=== PATIENT | female | born 1955 | race Caucasian/White ===

== ENCOUNTER 2018-01-06 09:24 | Observation (INO) | payer BC, OTHER ==
[~2018-01-06] VITALS: Ht 170.2 cm; Wt 70.8 kg
[~2018-01-06 09:24] MED LIST: TRAMADOL HCL100 MG PO; TRAZODONE HCL300 MG PO; ZOLOFT100 MG PO
[2018-01-06] MEDS ORDERED: SODIUM CHLORIDE 0.9% 1000ML 1,000 ML IV STA ×2 (09:35→13:13)
--- NOTE | 2018-01-06 10:00 | Diagnostic Imaging Report ---
Exam: Head CT without contrast History: Syncope, visual changes, headache, arm weakness Comparison studies: None Technique: Axial images were obtained from the skull base to the vertex. Coronal and sagittal images reconstructed from the axial data. Intravenous contrast: None Findings: Scalp: No abnormalities. Bones: No fractures, blastic or lytic lesions. Brain sulci: Appropriate for age. Ventricles: Normal in size and configuration. No hydrocephalus. Extra-axial spaces: No masses, no fluid collection. Parenchyma: No mass, acute hemorrhage or acute cortical vascular insult. A few subtle hypodensities in the supratentorial white matter are nonspecific but most compatible with chronic small vessel ischemic changes. Sellar/suprasellar region: No abnormalities. Craniocervical junction: Patent foramen magnum. No Chiari one malformation. Incidental findings: Atherosclerotic calcifications in the carotid siphons. IMPRESSION: 1. No acute intracranial abnormalities. 2. Mild supratentorial chronic microvascular ischemic changes. Signed by: Dr. Cheo Stanley M.D. on 01/06/2018 9:57 AM
--- NOTE | 2018-01-06 10:07 | Diagnostic Imaging Report ---
PROCEDURE: CHEST SINGLE (PORTABLE) COMPARISON: None. INDICATIONS: SYNCOPE, SHORTNESS OF BREATH FINDINGS: Lungs are well-inflated. No consolidation, pleural effusion, or pneumothorax. Cardiomediastinal contour and pulmonary vasculature are within normal limits. No acute osseous abnormality. Mid epigastric surgical clips. CONCLUSION: No acute cardiopulmonary abnormality. Dictated by: Cheo Yanes M.D. on 01/06/2018 at 10:08 Electronically approved by: Cheo Yanes M.D. on 01/06/2018 at 10:08
[2018-01-06 10:22] LABS: BASOPHILS # (AUTO) 0.1 (0.0-0.1); BASOPHILS % 0.9 % (0.0-1.0); EOSINOPHILS # (AUTO) 0.2 (0.0-0.4); EOSINOPHILS % 2.8 % (0.0-6.0); HEMATOCRIT 41.1 % (34.2-44.1); HEMOGLOBIN 14.3 g/dL (12.0-16.0); LYMPHOCYTES # (AUTO) 2.2 (1.0-3.2); LYMPHOCYTES % 25.7 % (18.0-39.1); MEAN CORPUSCULAR HEMOGLOBIN 31.5 pg (28-32); MEAN CORPUSCULAR HGB CONC 34.8 g/dL (31-35); MEAN CORPUSCULAR VOLUME 90.5 fL (81-99); MONOCYTES # (AUTO) 0.8 (0.2-0.8); MONOCYTES % 8.9 % (4.4-11.3); NEUTROPHILS # (AUTO) 5.2 (2.1-6.9); NEUTROPHILS % 61.3 % (38.7-80.0); PLATELET COUNT 452 x10e3/uL (140-360); RED BLOOD COUNT 4.54 x10e6/uL (3.6-5.1); RED CELL DISTRIBUTION WIDTH 12.9 % (11.7-14.4)
[2018-01-06 10:34] LABS: INR 1.03; PROTHROMBIN TIME 12.7 seconds (11.9-14.5)
[2018-01-06 10:35] LABS: PARTIAL THROMBOPLASTIN TIME 29.2 seconds (23.8-35.5)
[2018-01-06 10:44] LABS: ALANINE AMINOTRANSFERASE 13 IU/L (0-55); ALBUMIN 4.3 g/dL (3.5-5.0); ALBUMIN/GLOBULIN RATIO 1.1 (0.8-2.0); ALKALINE PHOSPHATASE 40 IU/L (40-150); ANION GAP 13.4 mmol/L (8-16); BLOOD UREA NITROGEN 17 mg/dL (7-26); BUN/CREATININE RATIO 18 (6-25); CALCIUM 10.1 mg/dL (8.4-10.2); CARBON DIOXIDE 28 mmol/L (22-29); CHLORIDE 99 mmol/L (98-107); CREATINE KINASE 49 IU/L (29-168); CREATININE, SERUM 0.93 mg/dL (0.57-1.11); EST GLOMERULAR FILTRATION RATE > 60 ML/MIN (60-); GLUCOSE 112 mg/dL (74-118); POTASSIUM 4.4 mmol/L (3.5-5.1); SODIUM 136 mmol/L (136-145)
[2018-01-06 14:30] LABS: BILIRUBIN,URINE NEGATIVE (NEGATIVE); CLARITY,URINE CLEAR (CLEAR); COLOR,URINE YELLOW (YELLOW); KETONES,URINE NEGATIVE (NEGATIVE); LEUKOCYTE ESTERASE ,URINE TRACE (NEGATIVE); NITRITE,URINE NEGATIVE (NEGATIVE); PROTEIN,URINE DIPSTICK NEGATIVE (NEGATIVE); URINE UROBILINOGEN 0.2 mg/dL (0.2 - 1)
[2018-01-06 14:32] LABS: EPITHELIAL CELLS,URINE RARE /LPF; WBC,URINE (MAN) 0-5 /HPF (0-5)
[2018-01-06 15:49] LABS: BENZODIAZEPINES SCREEN,URINE NEGATIVE (NEGATIVE)
[2018-01-06 15:50] LABS: AMPHETAMINES SCREEN,URINE POSITIVE (NEGATIVE); PHENCYCLIDINE SCREEN,URINE NEGATIVE (NEGATIVE)
[2018-01-06] MEDS ORDERED: ONDANSETRON HCL INJ 2 MG/ML VIAL IV PRN (16:00)
[2018-01-06] MEDS ORDERED: SODIUM CHLORIDE FLUSH 10 ML SYR INJ PRN (16:00)
--- OUTSIDE RECORDS SUMMARY | 2018-01-06 16:56 | XMS REPORT ---
Author Author [facility] Address Unknown Phone Unavailable Care Team Providers Care Food Beverage Manager Name Role Phone JOANN BROOKE Unavailable Unavailable Problems This patient has no known problems. Allergies, Adverse Reactions, Alerts This patient has no known allergies or adverse reactions. Medications This patient has no known medications. Results Test Description Test Time Test Comments Text Results Atomic Results Result Comments CT BRAIN WO [place] [address] Patient Name: PRAKASH OLSEN MR #: [id number] : 1955 Age/Sex: 62/F Req # : [id number] Adm Physician: Ordered by: JOANN BROOKE MD Report #: [id number] Location: ER Room/Bed: Procedure: [id number] CT/CT BRAIN WO Exam Date: 01/06/18 Exam Time: 0935 REPORT STATUS: Signed Exam: Head CT without contrast History: Syncope, visual changes, headache, arm weakness Comparison studies: None Technique: Axial images were obtained from the skull base to the vertex. Coronal and sagittal images reconstructed from the axial data. Intravenous contrast: None Findings: Scalp: No abnormalities. Bones: No fractures, blastic or lytic lesions. Brain sulci: Appropriate for age. Ventricles: Normal in size and configuration. No hydrocephalus. Extra-axial spaces: No masses, no fluid collection. Parenchyma: No mass, acute hemorrhage or acute cortical vascular insult. A few subtle hypodensities in the supratentorial white matter are nonspecific but most compatible with chronic small vessel ischemic changes. Sellar/suprasellar region: No abnormalities. Craniocervical junction: Patent foramen magnum. No Chiari one malformation. Incidental findings: Atherosclerotic calcifications in the carotid siphons. IMPRESSION: 1. No acute intracranial abnormalities. 2. Mild supratentorial chronic microvascular ischemic changes. Signed by: Dr. Zara Stanley M.D. on 01/06/2018 9:57 AM Dictated By: ZARA STANLEY MD 6 Transcribed By: CODY on 01/06/18956 COPY TO: JOANN BROOKE MD CHEST SINGLE (PORTABLE) [place] [address] Patient Name: PRAKASH OLSEN MR #: [id number] : 1955 Age/Sex: 62/F Req #: [id number] Adm Physician: Ordered by: JOANN BROOKE MD Report #: [id number] Location: ER Room/Bed: Procedure: [id number] DX/CHEST SINGLE (PORTABLE) Exam Date: 01/06/18 Exam Time: 0950 REPORT STATUS: Signed PROCEDURE: CHEST SINGLE (PORTABLE) COMPARISON: None. INDICATIONS: SYNCOPE, SHORTNESS OF BREATH FINDINGS: Lungs are well-inflated. No consolidation, pleural effusion, or pneumothorax. Cardiomediastinal contour and pulmonary vasculature are within normal limits. No acute osseous abnormality. Mid epigastric surgical clips. CONCLUSION: No acute cardiopulmonary abnormality. Dictated by: Zara Pascal M.D. on 01/06/2018 at 10:08 Electronically approved by: Zara Pascal M.D. on 01/06/2018 at 10:08 Dictated By: ZARA PASCAL MD 1008 Transcribed By: RUPINDER on 01/06/18 1008 COPY TO: JOANN BROOKE MD
[2018-01-06 19:58] VITALS: BP 114/54
[2018-01-06 19:59] VITALS: BP 114/54
[2018-01-06 20:06] LABS: CREATINE KINASE 53 IU/L (29-168)
[2018-01-06 20:53] VITALS: BP 114/54
[2018-01-06] MEDS: TRAZODONE HCL 50 MG TAB PO SCH (22:21)
[2018-01-06] MEDS: SERTRALINE HCL 100 MG TAB PO SCH (22:51)
[2018-01-06 23:21] VITALS: BP 95/51
[2018-01-07 01:21] LABS: CREATINE KINASE 50 IU/L (29-168)
[2018-01-07 05:22] VITALS: BP 94/50
[2018-01-07 06:41] LABS: BASOPHILS # (AUTO) 0.1 (0.0-0.1); BASOPHILS % 1.2 % (0.0-1.0); EOSINOPHILS # (AUTO) 0.3 (0.0-0.4); EOSINOPHILS % 4.6 % (0.0-6.0); HEMATOCRIT 33.7 % (34.2-44.1); HEMOGLOBIN 11.8 g/dL (12.0-16.0); LYMPHOCYTES # (AUTO) 2.4 (1.0-3.2); LYMPHOCYTES % 37.8 % (18.0-39.1); MEAN CORPUSCULAR VOLUME 91.3 fL (81-99); MONOCYTES # (AUTO) 0.8 (0.2-0.8); MONOCYTES % 12.8 % (4.4-11.3); NEUTROPHILS # (AUTO) 2.8 (2.1-6.9); NEUTROPHILS % 43.3 % (38.7-80.0); PLATELET COUNT 381 x10e3/uL (140-360); RED BLOOD COUNT 3.69 x10e6/uL (3.6-5.1); RED CELL DISTRIBUTION WIDTH 12.9 % (11.7-14.4)
[2018-01-07 07:07] LABS: CREATINE KINASE 49 IU/L (29-168)
[2018-01-07 07:36] LABS: ANION GAP 10.3 mmol/L (8-16); BLOOD UREA NITROGEN 13 mg/dL (7-26); BUN/CREATININE RATIO 18 (6-25); CALCIUM 8.9 mg/dL (8.4-10.2); CARBON DIOXIDE 25 mmol/L (22-29); CHLORIDE 108 mmol/L (98-107); CHOL/HDL RATIO 3.5 (3.0-3.6); CHOLESTEROL 211 MD/DL (0-199); CREATININE, SERUM 0.72 mg/dL (0.57-1.11); EST GLOMERULAR FILTRATION RATE > 60 ML/MIN (60-); GLUCOSE 96 mg/dL (74-118); HDL CHOLESTEROL 60 MG/DL (40-60); LDL CHOLESTEROL 125 MG/DL (60-130); POTASSIUM 4.3 mmol/L (3.5-5.1); SODIUM 139 mmol/L (136-145); TRIGLYCERIDES 128 MG/DL (0-149)
[2018-01-07 07:40] VITALS: BP 102/53
[2018-01-07] MEDS ORDERED: SODIUM CHLORIDE 0.9% 500ML 500 ML IV ONE (08:00)
--- NOTE | 2018-01-07 08:17 | History and Physical ---
PRIMARY CARE PHYSICIAN: None. CHIEF COMPLAINT: Loss of consciousness. HISTORY OF PRESENT ILLNESS: This is a 62-year-old woman with a history of insomnia and ADHD, now passing out 2 times at home. The patient states she hit her head on the bed. The patient was out for a few minutes. There was no tongue biting or loss of urine or stool. The last time this occurred was in April 2017. At that time, she did not seek medical attention. She denies any chest pain or shortness of breath. She denies any symptoms at this time, feels normal again. Did not have any presyncopal symptoms. PAST MEDICAL HISTORY: Insomnia, depression, ADHD, cigarette use 1/2 pack per day. PAST SURGICAL HISTORY: Tonsillectomy, gastric bypass, splenectomy, hysterectomy, left rotator cuff repair, C-spine laminectomy for stenosis. ALLERGIES: PER ELECTRONIC MEDICAL RECORD. FAMILY HISTORY AND SOCIAL HISTORY: The patient is . She has 1 child. No alcohol or illicits. She smokes 1/2 pack of cigarettes per day. MEDICATIONS: Per electronic medical record. REVIEW OF SYSTEMS: Denies any dizziness or chest pain. PHYSICAL EXAMINATION VITAL SIGNS: Reviewed. GENERAL: A tired-appearing woman, resting in bed. HEENT: Anicteric. Pupils are responsive to light. No oral lesions. CARDIOVASCULAR: Normal S1 and S2. LUNGS: Moderate breath sounds. ABDOMEN: Soft, nontender, nondistended. EXTREMITIES: No edema or calf tenderness. NEUROLOGIC: Alert and oriented times 3, moving all extremities. SKIN: Dry. PSYCHIATRIC: Normal affect. LABS: Reviewed. MEDICATIONS: Reviewed. ASSESSMENT AND PLAN: A 62-year-old woman. 1. Syncope. Could be related to hypotension. Blood pressure is low here. Will obtain carotid ultrasound and MRI of the brain. CT of the brain was negative. Will also obtain a 2-D echocardiogram. Obtain orthostatic vital signs. 2. Hypotension. May need fluids. Will get orthostatic vitals now. 3. Attention deficit/hyperactivity disorder. Restart home medication. 4. Depression. Restart home medication. 5. Insomnia. Restart home medication. 6. Normocytic anemia, mild. Will follow. 7. Prophylaxis: Will use Lovenox and Pepcid. 8. Disposition: Give some fluids. Obtain orthostatics and follow up all the studies. Job#: [id number] MH
[2018-01-07] MEDS: ASPIRIN 81 MG CHEW TAB PO SCH (09:53)
[2018-01-07] MEDS: FAMOTIDINE 20 MG TAB PO SCH ×2 (09:53→16:35)
--- NOTE | 2018-01-07 10:10 | Diagnostic Imaging Report ---
Exam: Brain MRI without IV contrast History: Syncope Comparison studies: Head CT 01/06/2018 Technique: Sagittal T2; axial DWI, FLAIR, MPGR, T1, Coronal T2 FLAIR. Intravenous contrast: None Findings: Scalp: Normal in signal. No masses. Bone marrow: Normal in signal intensity. Brain sulci: Appropriate for age. Ventricles: Normal in size. No hydrocephalus. Extra axial spaces: No mass, no fluid collection. Parenchyma: No mass, acute hemorrhage or acute ischemia. A few T2 FLAIR hyperintense foci in the supratentorial white matter are nonspecific but most compatible with chronic small vessel ischemic changes. Suprasellar region: No abnormalities. Craniocervical junction: Patent foramen magnum. No Chiari malformation. Vessels: Normal flow-voids in the arteries and sinuses. IMPRESSION: 1. No acute intracranial abnormalities. 2. Mild supratentorial chronic microvascular ischemic changes. Signed by: Dr. Cheo Stanley M.D. on 01/07/2018 10:06 AM
[2018-01-07 11:10] VITALS: BP 115/56
[2018-01-07 15:34] VITALS: BP 118/56
[2018-01-07] MEDS: ENOXAPARIN SOD INJ 40 MG/0.4 ML SYR SC SCH (16:35)
[2018-01-07] MEDS: SODIUM CHLORIDE 0.9% 1000ML 1,000 ML IV SCH (16:35)
[2018-01-07 20:00] VITALS: BP 115/56
[2018-01-07] MEDS: TRAZODONE HCL 50 MG TAB PO SCH (20:36)
[2018-01-07] MEDS: SERTRALINE HCL 100 MG TAB PO SCH (20:36)
[2018-01-08] VITALS: BP 95/58
[2018-01-08] MEDS: SODIUM CHLORIDE 0.9% 1000ML 1,000 ML IV SCH ×4 (02:54→16:50)
[2018-01-08 04:00] VITALS: BP 101/52
[2018-01-08] MEDS ORDERED: ASPIRIN CHEW81 MG PO (06:44)
[2018-01-08] MEDS ORDERED: MIDODRINE 2.5 MG TAB PO SCH (07:00)
[2018-01-08 07:54] VITALS: BP 107/55
--- NOTE | 2018-01-08 07:58 | Progress Note ---
DATE: January 08, 2018 TIME: 7 a.m. OVERNIGHT: Orthostatics positive. Ultrasound of carotids still pending. REVIEW OF SYSTEMS: Denies any dizziness. VITAL SIGNS: Reviewed. PHYSICAL EXAMINATION GENERAL: A tired-appearing woman, resting in bed. HEENT: Anicteric. Pupils are responsive to light. No oral lesions. CARDIOVASCULAR: Normal S1 and S2. LUNGS: Moderate breath sounds. ABDOMEN: Soft, nontender, nondistended. EXTREMITIES: No edema. SKIN: Dry. PSYCHIATRIC: Flat affect. LABS: Reviewed. MEDICATIONS: Reviewed. ASSESSMENT AND PLAN: A 62-year-old woman. 1. Syncope. 2. Orthostatic hypotension. 3. Attention deficit/hyperactivity disorder. 4. Depression. 5. Insomnia. 6. Normocytic anemia. PLAN 1. Start midodrine 5 t.i.d. 2. Give normal saline 1 L bolus now, at noon and at 4 p.m. and recheck orthostatics this evening. 3. Start TEE hose in the setting of orthostatic hypotension. 4. Counseled on sitting on the bedside before standing when she is getting up from a seated or lying position. 5. Continue medications for insomnia, depression and ADHD. 6. Prophylaxis: Continue regimen and TEE hose. 7. Disposition: Monitor closely. Recheck orthostatics this evening. Possible discharge at the end of the day. Job#: [id number]
[2018-01-08] MEDS: FAMOTIDINE 20 MG TAB PO SCH ×2 (08:02→16:32)
[2018-01-08] MEDS: ASPIRIN 81 MG CHEW TAB PO SCH (08:29)
[2018-01-08 12:03] VITALS: BP_SYST 105; BP_SYST 182; BP_DIAS 53; BP_DIAS 82
[2018-01-08] MEDS: MIDODRINE HCL 5 MG TABLET PO SCH ×2 (12:20→16:32)
[2018-01-08] MEDS: ENOXAPARIN SOD INJ 40 MG/0.4 ML SYR SC SCH (16:32)
[2018-01-08 16:43] VITALS: BP 110/53
[2018-01-08] MEDS ORDERED: MIDODRINE HCL2.5 MG PO (18:56)
[2018-01-09] MEDS ORDERED: SODIUM CHLORIDE 0.9% 1000ML 1,000 ML IV SCH (08:15)
== END 2018-01-08 19:37 | disposition home or self-care (01) ==
LOC: ER 09:24 → EDBEDREQSVC 16:37 → ERHOLD 16:52 → IMCU 17:45
PROVIDERS: ADMIT Internal Medicine; ATTEND Internal Medicine
DX: R55 Syncope and collapse (principal); I95.9 Hypotension, unspecified; F90.9 Attention-deficit hyperactivity disorder, unspecified type; F32.9 Major depressive disorder, single episode, unspecified; G47.00 Insomnia, unspecified; D64.9 Anemia, unspecified; F17.210 Nicotine dependence, cigarettes, uncomplicated
CPT/HCPCS: 36415 ×2; 70450; 70551; 71045; 80048; 80053; 80061; 80307; 81001; 82550 ×2; 82553 ×2; 83880; 84484 ×2; 85025 ×2; 85379; 85610; 85730; 87086; 93005; 93306; 93880; 97116; 97161; 99284; G0378 ×3; G8978; G8979; G8980; J7030 ×3; J7040; J1650

== ENCOUNTER → 2019-06-18 | Outpatient (CLI) | payer BC ==
[~2019-06-18] MED LIST changes: +ASPIRIN CHEW81 MG PO; +MIDODRINE HCL2.5 MG PO
--- NOTE | 2019-06-19 08:19 | Diagnostic Imaging Report ---
MRI of the sacrum without contrast. History: Sacrococcygeal disorder. Sacral pain. Decreased range of motion. Pain worse when walking. Technique: Multiplanar multisequence MRI of the sacrum without contrast Findings: Mild subtle bone marrow edema in the superior left and right sacrum likely due to a stress response. No cortical fracture, subluxation or avascular necrosis. Scattered degenerative change. No osseous erosion. The visualized muscles are normal in size, signal intensity and morphology. No ligamentous or tendon tear is seen. The visualized neurovascular bundles are intact. Impression: Mild subtle bone marrow edema in the superior left and right sacrum likely due to a stress response. No cortical fracture, subluxation or avascular necrosis. Signed by: Dr. Louie Cunha M.D. on 06/19/2019 8:16 AM
== END ==
LOC: MRI 14:17
PROVIDERS: ATTEND Specialist
DX: M53.3 Sacrococcygeal disorders, not elsewhere classified (principal)
CPT/HCPCS: 72195

== ENCOUNTER → 2023-01-10 | Day surgery (SDC) | payer MEDICARE, OTHER ==
[2023-01-03 08:39] LABS: BASOPHILS # (AUTO) 0.1 (0.0-0.1); BASOPHILS % 1.2 % (0.0-1.0); EOSINOPHILS # (AUTO) 0.4 (0.0-0.4); EOSINOPHILS % 5.1 % (0.0-6.0); HEMOGLOBIN 13.1 g/dL (12.0-16.0); LYMPHOCYTES # (AUTO) 2.2 (1.0-3.2); MEAN CORPUSCULAR HEMOGLOBIN 31.3 pg (28-32); MEAN CORPUSCULAR HGB CONC 34.5 g/dL (31-35); MEAN CORPUSCULAR VOLUME 90.7 fL (81-99); MONOCYTES # (AUTO) 0.7 (0.2-0.8); MONOCYTES % 9.5 % (4.4-11.3); NEUTROPHILS # (AUTO) 3.8 (2.1-6.9); NEUTROPHILS % 52.9 % (38.7-80.0); PLATELET COUNT 401 x10e3/uL (140-360); RED BLOOD COUNT 4.19 x10e6/uL (3.6-5.1); RED CELL DISTRIBUTION WIDTH 13.1 % (11.7-14.4)
[~2023-01-10] MED LIST changes: +ALEVE220 M1 PO; +CRESTOR10 MG PO; +HYOSCYAMINE SULFATE 0.5 MG/ML INJ IV ONE; +LACTATED RINGER'S 1,000 ML ONE; +PROPOFOL IV EMULSION 10 MG/ML 20 ML VIAL IV ONE
[2023-01-10 10:40] VITALS: BP 127/72
== END | disposition home or self-care (01) ==
LOC: OR 07:28
PROVIDERS: ATTEND Internal Medicine Gastroenterology
DX: K59.00 Constipation, unspecified (principal); D12.2 Benign neoplasm of ascending colon; D12.3 Benign neoplasm of transverse colon; D12.4 Benign neoplasm of descending colon; D12.5 Benign neoplasm of sigmoid colon; Q27.39 Arteriovenous malformation, other site; K57.30 Diverticulosis of large intestine without perforation or abscess without bleeding; K64.8 Other hemorrhoids; I10 Essential (primary) hypertension; F32.A Depression, unspecified; Z01.810 Encounter for preprocedural cardiovascular examination; Z01.812 Encounter for preprocedural laboratory examination; Z79.82 Long term (current) use of aspirin; Z79.899 Other long term (current) drug therapy
CPT/HCPCS: 36415; 45380; 45385; 85025; 88305; 93005; J1980; J2704; J7121; 45378

== ENCOUNTER → 2023-08-19 | Day surgery (SDC) | payer MEDICARE, OTHER ==
[2023-08-13 10:04] LABS: BASOPHILS # (AUTO) 0.1 (0.0-0.1); BASOPHILS % 1.3 % (0.0-1.0); EOSINOPHILS # (AUTO) 0.2 (0.0-0.4); EOSINOPHILS % 3.2 % (0.0-6.0); HEMATOCRIT 37.5 % (34.2-44.1); LYMPHOCYTES # (AUTO) 2.4 (1.0-3.2); MEAN CORPUSCULAR HEMOGLOBIN 31.3 pg (28-32); MEAN CORPUSCULAR HGB CONC 34.7 g/dL (31-35); MEAN CORPUSCULAR VOLUME 90.4 fL (81-99); MONOCYTES # (AUTO) 0.7 (0.2-0.8); NEUTROPHILS # (AUTO) 3.6 (2.1-6.9); NEUTROPHILS % 51.4 % (38.7-80.0); PLATELET COUNT 405 x10e3/uL (140-360); RED BLOOD COUNT 4.15 x10e6/uL (3.6-5.1); RED CELL DISTRIBUTION WIDTH 13.4 % (11.7-14.4); WHITE BLOOD COUNT 6.97 x10e3/uL (4.8-10.8)
[~2023-08-19] MED LIST changes: -HYOSCYAMINE SULFATE 0.5 MG/ML INJ IV ONE; +LIDOCAINE HCL 2% LOCAL INJ 5 ML SDV VIAL INJ ONE; -PROPOFOL IV EMULSION 10 MG/ML 20 ML VIAL IV ONE; +PROPOFOL IV EMULSION 10 MG/ML 50 ML VIAL IV ONE; +VIT D PO
[2023-08-19 13:29] VITALS: TEMP 97.4
[2023-08-19 14:00] VITALS: BP 128/70; PULSE 70; RESP 16; O2SAT 98
== END | disposition home or self-care (01) ==
LOC: OR 11:17
PROVIDERS: ATTEND Internal Medicine Gastroenterology
DX: K29.50 Unspecified chronic gastritis without bleeding (principal); K22.10 Ulcer of esophagus without bleeding; Z98.0 Intestinal bypass and anastomosis status; Z86.010 Personal history of colon polyps; K59.09 Other constipation; Z71.3 Dietary counseling and surveillance; I10 Essential (primary) hypertension; E78.00 Pure hypercholesterolemia, unspecified; F32.A Depression, unspecified; Z88.1 Allergy status to other antibiotic agents; Z01.810 Encounter for preprocedural cardiovascular examination; Z01.812 Encounter for preprocedural laboratory examination; Z79.1 Long term (current) use of non-steroidal anti-inflammatories (NSAID); Z79.899 Other long term (current) drug therapy; Z68.30 Body mass index [BMI] 30.0-30.9, adult; Z80.0 Family history of malignant neoplasm of digestive organs
CPT/HCPCS: 36415; 43239; 85025; 88305; 88342; 93005; C9113; J2001; J2704; J7121